=== PATIENT | male | born 1950 | race Caucasian/White ===

== ENCOUNTER → 2023-11-30 11:34 | Outpatient (REF) | payer MEDICARE, SELFPAY ==
[2023-11-30 13:22] LABS: % Basophils 0.2 % (0-2); % Eosinophils 2.3 % (0-6); % Immature Granulocytes 0.4 % (0-0.5); % Lymphocytes 8.4 % (20.5-51.1); % Monocytes 6.3 % (1.7-9.3); % Neutrophils 82.4 % (42.2-75.2); Absolute Eosinophils 0.2 10^3/uL (0-0.7); Absolute Lymphocytes 0.8 10^3/uL (1.2-3.4); Absolute Monocytes 0.6 10^3/uL (0.1-0.6); Absolute Neutrophils 8.1 10^3/uL (1.4-6.5); Hematocrit 30.3 % (39.0-52.0); Mean Corpuscular Volume 93.8 fL (80.0-94.0); Mean Platelet Volume 9.4 fL (7.4-10.4); Nucleated Red Blood Cells % 0 % (-); Platelet Count 277 10^3/uL (130-400); Red Blood Cell Count 3.23 10^6/uL (4.70-6.10); Red Cell Dist. Width 12.5 % (11.5-14.5); White Blood Cell Count 9.8 10^3/uL (4.8-10.8)
== END ==
LOC: RCS 11:34
PROVIDERS: Orthopaedic Surgery; ATTENDING PHYSICIAN Physician Assistant; FAMILY PHYSICIAN Internal Medicine
DX: M25.562 Pain in left knee (principal); M25.462 Effusion, left knee; M79.605 Pain in left leg; Z01.818 Encounter for other preprocedural examination
CPT/HCPCS: 36415; 85025; 93005; 93971

== ENCOUNTER 2023-12-02 06:21 | Day surgery (SDC) | payer MEDICARE, SELFPAY ==
--- NOTE | 2023-12-01 14:36 | PTCARENOTE ---
Abnormal EKG reviewed by Dr. Barnes, no further action requested.
[2023-12-02] VITALS (13 sets, daily range): BP systolic 135–149; BP diastolic 60–82; BMI 25.1
[2023-12-02] MEDS: TYLENOL 1000 MG PO (08:29)
[2023-12-02] MEDS: CELEBREX 200 MG PO (08:29)
[2023-12-02] MEDS: NORMOSOL-R 1000 IV (08:29)
[2023-12-02] MEDS: NEURONTIN 300 MG PO (08:29)
== END 2023-12-02 13:45 | disposition home or self-care (01) ==
LOC: SDS 06:21
PROVIDERS: ATTENDING PHYSICIAN Orthopaedic Surgery
DX: S76.122A Laceration of left quadriceps muscle, fascia and tendon, initial encounter (principal); W19.XXXA Unspecified fall, initial encounter; S80.02XA Contusion of left knee, initial encounter; S70.12XA Contusion of left thigh, initial encounter
CPT/HCPCS: 27385; 10140

== ENCOUNTER → 2023-12-09 10:58 | Outpatient (REF) | payer MEDICARE, SELFPAY | LOC: RAD 10:58 | PROVIDERS: ATTENDING PHYSICIAN Physician Assistant Surgical | DX: M79.662 Pain in left lower leg (principal) | CPT/HCPCS: 93971 ==

== ENCOUNTER → 2024-05-05 09:22 | Outpatient (REF) | payer MEDICARE, SELFPAY | LOC: RAD 09:22 | PROVIDERS: ATTENDING PHYSICIAN Specialist; FAMILY PHYSICIAN Internal Medicine | DX: M19.012 Primary osteoarthritis, left shoulder (principal); M25.512 Pain in left shoulder | CPT/HCPCS: 73200 ==